=== PATIENT | male | born 1965 | race African-American/Black ===

== ENCOUNTER 2021-11-04 10:42 | Emergency (ER) | payer MEDICARE, OTHER ==
[~2021-11-04] VITALS: Ht 182.9 cm; Wt 86.0 kg
[~2021-11-04 10:42] MED LIST: AMLO5TAB4 PO; CLON0.1T PO; LIDO700A TP; LURA40TA2 PO; OMEP20TA15 PO; TRAZ-251 PO
[2021-11-04 10:43] VITALS: BP 190/110
[2021-11-04] MEDS ORDERED: LORAZEPAM 1MG TABLET PO NR (11:30)
== END 2021-11-04 12:14 | disposition home or self-care (01) ==
LOC: ER 10:42
DX: Z76.0 Encounter for issue of repeat prescription (principal); G40.909 Epilepsy, unspecified, not intractable, without status epilepticus
CPT/HCPCS: 99283